=== PATIENT | female | born 1955 | race American Indian/Alaskan Native ===

== ENCOUNTER 2020-01-28 03:22 | Emergency (ER) | payer MEDICARE ==
[2020-01-28] MEDS ORDERED: ACETAMINOPHEN 500 MG TAB PO ONE (04:22)
--- NOTE | 2020-01-28 04:58 | Emergency Department Report ---
ED General Adult HPI - General Chief complaint: Abdominal Pain Stated complaint: SINUS INFECTION, HEADACHE Time Seen by Provider: 01/28/20 04:22 Source: patient Mode of arrival: Ambulatory Limitations: No Limitations - History of Present Illness Initial comments: Patient 64-year-old female history of bronchitis who presents for generalized body aches x1 week. States she saw her PCP diagnosed with bronchitis and sinusitis started on amoxicillin 1 week ago. States body aches continue however patient is not currently taking NSAIDs or analgesics. There is been no fever, patient does endorse head congestion and intermittent wheezing that is relieved by albuterol inhaler as prescribed by PCP. Patient rates symptoms at 3/10 at this time , there is no nausea or vomiting, patient is tolerating p.o. intake. There is no dizziness, lightheadedness, chest pain or shortness of breath. There is no wheezing or stridor at this time. Severity scale (0 -10): 6 - Related Data Previous Rx's Medication Instructions Recorded Last Taken Type Azithromycin 500 mg PO DAILY 5 Days #5 tablet 01/28/20 Unknown Rx Allergies Allergy/AdvReac Type Severity Reaction Status Date / Time No Known Allergies Allergy Unverified 01/28/20 04:45 ED Review of Systems ROS: Stated complaint: SINUS INFECTION, HEADACHE Other details as noted in HPI Constitutional: malaise Eyes: as per HPI ENT: throat pain, congestion Respiratory: cough Cardiovascular: denies: chest pain, palpitations Endocrine: no symptoms reported Gastrointestinal: denies: abdominal pain, nausea, vomiting, diarrhea Genitourinary: denies: urgency, dysuria, frequency, discharge Musculoskeletal: other (bodyaches). denies: back pain, joint swelling, arthralgia Skin: denies: rash, lesions Neurological: denies: headache (sinus pressure), weakness, numbness, paresthesias, confusion, vertigo Psychiatric: denies: anxiety, depression Hematological/Lymphatic: denies: easy bleeding, easy bruising ED Past Medical Hx - Past Medical History Previous Medical History?: No - Social History Smoking Status: Never Smoker Substance Use Type: None - Medications Home Medications: Home Medications Medication Instructions Recorded Confirmed Last Taken Type Azithromycin 500 mg PO DAILY 5 Days #5 tablet 01/28/20 Unknown Rx ED Physical Exam - General Limitations: No Limitations General appearance: alert, in no apparent distress - Head Head exam: Present: atraumatic, normocephalic - Eye Eye exam: Present: normal appearance, EOMI Pupils: Present: normal accommodation - ENT ENT exam: Present: mucous membranes moist - Neck Neck exam: Present: normal inspection, full ROM. Absent: tenderness, lymphadenopathy - Respiratory Respiratory exam: Present: normal lung sounds bilaterally. Absent: respiratory distress, wheezes, stridor, chest wall tenderness - Cardiovascular Cardiovascular Exam: Present: regular rate, normal rhythm, normal heart sounds. Absent: systolic murmur, diastolic murmur, rubs, gallop - GI/Abdominal GI/Abdominal exam: Present: soft, normal bowel sounds. Absent: distended, tenderness, guarding, rebound, rigid, bruit, hernia - Rectal Rectal exam: Present: deferred - Extremities Exam Extremities exam: Present: normal inspection, full ROM, normal capillary refill - Back Exam Back exam: Present: normal inspection, full ROM. Absent: tenderness, CVA tenderness (R), CVA tenderness (L), vertebral tenderness - Neurological Exam Neurological exam: Present: alert, oriented X3, CN II-XII intact, normal gait, reflexes normal - Expanded Neurological Exam Expanded Patient oriented to: Present: person, place, time Speech: Present: fluid speech Motor strength exam: RUE: 5, LUE: 5, RLE: 5, LLE: 5 Best Eye Response ([place]): (4) open spontaneously Best Motor Response ([place]): (6) obeys commands Best Verbal Response ([place]): (5) oriented [place] Total: 15 - Psychiatric Psychiatric exam: Present: normal affect, normal mood - Skin Skin exam: Present: warm, dry, intact, normal color. Absent: rash ED Course Vital Signs 01/28/20 01/28/20 03:28 04:46 Temperature 98.5 F Pulse Rate 96 H Respiratory 16 18 Rate Blood Pressure 138/89 O2 Sat by Pulse 95 Oximetry ED Medical Decision Making - Radiology Data Radiology results: report reviewed, image reviewed Findings Reporting MD: Kvng Marino Dictation Time: January 28, 2020 04:14 Boot Repairer: Not available Strategic Manager Date: CHEST 2 VIEWS INDICATION: cough productive x 3 weeks. COMPARISON: None FINDINGS: SUPPORT DEVICES: None. HEART: Within normal limits. LUNGS/PLEURA: Minimal streaky bibasilar airspace disease with otherwise clear lungs. No pneumothorax. ADDITIONAL FINDINGS: None. IMPRESSION: 1. Pulmonary findings as above likely representing atelectasis. Signer Name: Kvng Marino MD Signed: 01/28/2020 4:14 AM Workstation Name: [id number] - Medical Decision Making CXR: Minimal streaky bibasilar airspace disease with otherwise clear lungs. No pneumothorax., Pulmonary findings as above likely representing atelectasis. Plan continue current bronchitis management will add abx Azithromycin follow up with pcp in 2-3 days return to emergency if symptoms worsen., pt verbalized agreement and understanding of same. Critical care attestation.: If time is entered above; I have spent that time in minutes in the direct care of this critically ill patient, excluding procedure time. ED Disposition Clinical Impression: Bronchitis Disposition: DC-01 TO HOME OR SELFCARE Is pt being admited?: No Does the pt Need Aspirin: No Condition: Stable Instructions: Abdominal Pain (ED), Chronic Bronchitis (ED), Upper Respiratory Infection, Adult, [id number] Additional Instructions: continue albuterol, prednisone as prescribed by pcp, take antibiotics as prescribed Prescriptions: Azithromycin 500 mg PO DAILY 5 Days #5 tablet Referrals: EYAD GRIER MD [Primary Care Provider] - 3-5 Days Time of Disposition: 05:25
--- NOTE | 2020-01-28 05:19 | XRay Report ---
CHEST 2 VIEWS INDICATION: cough productive x 3 weeks. COMPARISON: None FINDINGS: SUPPORT DEVICES: None. HEART: Within normal limits. LUNGS/PLEURA: Minimal streaky bibasilar airspace disease with otherwise clear lungs. No pneumothorax . ADDITIONAL FINDINGS: None. IMPRESSION: 1. Pulmonary findings as above likely representing atelectasis. Signer Name: Kvng Marino MD Signed: 01/28/2020 5:14 AM Workstation Name: [id number]
[2020-01-28] MEDS ORDERED: AZITHROMYCIN 250 MG TAB PO ONE (05:26)
[2020-01-28 05:40] VITALS: BP 118/76
== END 2020-01-28 05:35 | disposition home or self-care (01) ==
LOC: ED 03:22
DX: J40 Bronchitis, not specified as acute or chronic (principal); Z79.899 Other long term (current) drug therapy
CPT/HCPCS: 71046; 99283